=== PATIENT | female | born 1990 | race Two or more races ===

== ENCOUNTER 2020-04-28 10:12 | Emergency (ER) | payer OTHER ==
[~2020-04-28] VITALS: Ht 157.5 cm; Wt 59.9 kg
[2020-04-28 10:27] VITALS: BP 128/80
--- NOTE | 2020-04-28 10:28 | NUR ---
ED Nurse Note: Pt ambulated to ED from home d/t LT calf pain for 3 days. Pt is AOx4, calm and cooperative. Pt denies any injury nor trauma, per pt, pain is felt whenever she's ambulating/resting. Placed on bed.
--- NOTE | 2020-04-28 10:30 | NUR ---
ED Nurse Note: ERMD at bedside.
--- NOTE | 2020-04-28 10:52 | Emergency Room Report ---
History of Present Illness General Chief Complaint: Pain Source: Patient Present Illness HPI 29-year-old female presents complaining of left calf pain. Started 2 days ago. Dull, 5 out of 10, radiating up the leg. Is able to bear weight. States that she is concerned she may have a blood clot. Had a recent lengthy car drive. Denies chest pain or shortness of breath. No other aggravating relieving factors. Denies any other associated symptoms Allergies: Coded Allergies: No Known Allergies (Unverified , 04/28/20) COVID-19 Screening Contact w/high risk pt: No Recent Travel to affected area: No Experienced COVID-19 symptoms?: No COVID-19 Testing performed [employer]: No Patient History Past Medical History: none Past Surgical History: none Pertinent Family History: none Social History: Denies: smoking, alcohol use, drug use Last Menstrual Period: 04/24/20 Now: No Immunizations: UTD Reviewed Nursing Documentation: PMH: Agreed; PSxH: Agreed Nursing Documentation-PMH Past Medical History: No Stated History Review of Systems All Other Systems: negative except mentioned in HPI Physical Exam Vital Signs Date Time Temp Pulse Resp B/P (MAP) Pulse Ox O2 Delivery O2 Flow Rate FiO2 04/28/20 10:22 98.6 68 16 128/80 (96) 96 Room Air Sp02 EP Interpretation: reviewed, normal General Appearance: no apparent distress, alert, GCS 15, non-toxic Head: normocephalic, atraumatic Eyes: bilateral eye normal inspection, bilateral eye PERRL ENT: hearing grossly normal, normal pharynx, no angioedema, normal voice Neck: full range of motion, supple/symm/no masses Respiratory: chest non-tender, lungs clear, normal breath sounds, speaking full sentences Cardiovascular #1: regular rate, rhythm, no edema Cardiovascular #2: 2+ carotid (R), 2+ carotid (L), 2+ radial (R), 2+ radial (L) , 2+ dorsalis pedis (R), 2+ dorsalis pedis (L) Gastrointestinal: normal bowel sounds, non tender, soft, non-distended, no guarding, no rebound Rectal: deferred Genitourinary: normal inspection, no CVA tenderness Musculoskeletal: back normal, normal range of motion, calf tenderness, gait/ station normal Neurologic: alert, motor strength/tone normal, oriented x3, sensory intact, responsive, speech normal Psychiatric: judgement/insight normal, memory normal, mood/affect normal, no suicidal/homicidal ideation Reflexes: 3+ bicep (R), 3+ bicep (L), 3+ tricep (R), 3+ tricep (L), 3+ knee (R) , 3+ knee (L) Skin: no rash Lymphatic: no adenopathy Medical Decision Making Diagnostic Impression: Primary Impression: Calf pain Qualified Codes: M79.662 - Pain in left lower leg ER Course Hospital Course 29-year-old female present ED complaining of left calf pain and swelling Differential diagnoses include: DVT, cellulitis, contusion, abscess Clinical course Patient placed on stretcher after initial history and physical I ordered DVT ultrasound. Doppler ultrasound shows no evidence of DVT Likely Strain. Reassurance given. Safe for discharge with close outpatient follow-up. I will provide referrals I. I feel this is a highly complex case requiring extensive working including EKG/Rhythm strip, Xray/CT/US, Blood/urine lab work, repeat exams while in ED, and administration of strong opiates/narcotics for pain control, admission to hospital or close patient follow up. Diagnosis - calf pain Stable and discharged to home. Followup with PMD. Return to ED if symptoms recur or worsen CT/MRI/US Diagnostic Results CT/MRI/US Diagnostic Results : Imaging Test Ordered: Venous Duplex LLE Impression no evidence of DVT in LLE Last Vital Signs Date Time Temp Pulse Resp B/P (MAP) Pulse Ox O2 Delivery O2 Flow Rate FiO2 04/28/20 10:27 98.6 16 128/80 96 Room Air 04/28/20 10:22 68 Status: improved Disposition: HOME, SELF-CARE Condition: Stable Scripts Acetaminophen* (TYLENOL EXTRA STRENGTH*) 500 Mg Tablet 500 MG ORAL Q8H PRN for Prn Headache/Temp > 101, #30 TAB 0 Refills Prov: Gunner Lott MD 04/28/20 Referrals: NON PHYSICIAN (PCP) Gunner Lott MD Apr 28, 2020 10:52
--- NOTE | 2020-04-28 11:15 | NUR ---
ED Nurse Note: US tech at bedside.
[2020-04-28] MEDS ORDERED: TYLENOL EXTRA500 MG ORAL (11:43)
--- NOTE | 2020-04-28 11:46 | NUR ---
ER DISCHARGE NOTE: Patient is cleared to be discharged per ERMD, pt is aox4, on room air, with stable vital signs. pt was given dc and prescription instructions, pt was able to verbalize understanding, pt id band and iv site removed. pt is able to ambulate with steady gait. pt took all belongings.
[2020-04-28 11:47] VITALS: BP 121/77
--- NOTE | 2020-04-28 12:09 | Diagnostic Imaging Report ---
EXAM: US Duplex Left Lower Extremity Veins CLINICAL HISTORY: SERENA TECHNIQUE: Real-time duplex ultrasound scan of the left lower extremity veins integrating B-mode two-dimensional vascular structure, Doppler spectral analysis, color flow Doppler imaging and compression. COMPARISON: None FINDINGS: Deep veins: Unremarkable. No DVT in the visualized common femoral, femoral, proximal deep femoral or popliteal veins. The veins demonstrate normal color flow, are normally compressible, with normal phasic flow and/or augmentation response. Superficial veins: Unremarkable. No thrombus in the visualized great saphenous vein. Soft tissues: No acute findings. No popliteal cyst. IMPRESSION: No deep venous thrombosis identified in the left lower extremity.
== END 2020-04-28 11:48 | disposition home or self-care (01) ==
LOC: EMR 10:44
DX: M79.662 Pain in left lower leg (principal)
CPT/HCPCS: 93971; 99284